=== PATIENT | female | born 1980 | race Caucasian/White ===

== ENCOUNTER 2016-05-02 09:30 | Emergency (ER) | payer BC ==
[2016-05-02 10:25] VITALS: BP 105/54
[2016-05-02] MEDS ORDERED: NS 0.9% 1000 ML* 1,000 ML IV ONE (11:14)
[2016-05-02] MEDS ORDERED: Famotidine IV * 20 MG in NS 0.9% 100 ML* 100 ML IVPB ONE (11:15)
[2016-05-02] MEDS ORDERED: Famotidine IV* 10 MG/ML 2 ML (20 mg) ONE (11:31)
--- NOTE | 2016-05-03 18:35 | UC ---
lisa Vaz Timothy, scribed for Susie Miller MD on 05/02/16 at 1104 . Abdominal Pain Female HPI - HPI Summary HPI Summary: Jim Purcell is a 35 yo female presenting to [facility] with vomiting x10-12 since 1900 yesterday. She also c/o 7/10 diffuse upper abdominal ache and discomfort since her Sx began, and has been unable to sleep comfortably. She is unable to keep fluids or food down. her last BM was today at 0600, and was diarrhea. Pt states her son had a stomach bug this past weekend. She denies any change in diet or use of ABx. Pt is currently breast feeding. her MHx includes fibromyalgia. - History of Current Complaint Chief Complaint: UCGI Stated Complaint: VOMITING Time Seen by Provider: 05/02/16 11:09 Hx Obtained From: Patient Hx Last Menstrual Period: IUD Onset/Duration: Sudden Onset, Lasting Hours, Still Present Timing: Constant Severity Initially: Moderate Severity Currently: Moderate Pain Intensity: 7 Pain Scale Used: 0-10 Numeric Location: Diffuse Radiates: No Character: Aching, Cramping Aggravating Factor(s): Food Alleviating Factor(s): Nothing Associated Signs and Symptoms: Positive: Nausea, Vomiting, Diarrhea - Risk Factors Ectopic Risk Factor: Maternal Age ^ 30 Ovarian Torsion Risk Factor: Reproductive Age Allergies/Adverse Reactions: Allergies Allergy/AdvReac Type Severity Reaction Status Date / Time Clarithromycin [From Biaxin] Allergy Severe Vomiting Verified 05/02/16 10:17 Amoxicillin Allergy Intermediate Rash Verified 05/02/16 10:17 Dairy Allergy Mild GI Upset Uncoded 05/02/16 10:17 eggs Allergy Mild GI Upset Uncoded 05/02/16 10:17 Gluten Allergy Mild GI Upset Uncoded 05/02/16 10:17 PMH/Surg Hx/FS Hx/Imm Hx Previously Healthy: No - fibromyalgia Psychological History Of: Reports: Anxiety - Surgical History Surgical History: None - Family History Known Family History: Positive: Diabetes, Other - fibromyalgia - Social History Lives: With Family Alcohol Use: Rare Substance Use Type: None Smoking Status (MU): Never Smoked Tobacco Have You Smoked in the Last Year: No - Immunization History Most Recent Influenza Vaccination: Fall 2015 Most Recent Tetanus Shot: 2014 Most Recent Pneumonia Vaccination: none Review of Systems Constitutional: Negative Skin: Negative Eyes: Negative ENT: Negative Respiratory: Negative Cardiovascular: Negative Gastrointestinal: Abdominal Pain, Vomiting, Diarrhea Genitourinary: Negative Motor: Negative Neurovascular: Negative Musculoskeletal: Negative Neurological: Negative Psychological: Negative All Other Systems Reviewed And Are Negative: Yes Physical Exam Triage Information Reviewed: Yes Appearance: No Pain Distress, Well-Nourished, Ill-Appearing Vital Signs: Initial Vital Signs Temp 98 F 05/02/16 10:19 Pulse 104 05/02/16 10:19 Resp 18 05/02/16 10:19 BP 105/54 05/02/16 10:19 Pulse Ox 99 05/02/16 10:19 Vital Signs Reviewed: Yes Eyes: Positive: Conjunctiva Clear ENT: Positive: Hearing grossly normal. Negative: Muffled/hoarse voice Neck: Positive: Supple, Nontender Respiratory: Positive: Chest non-tender, Lungs clear, Normal breath sounds, No respiratory distress Cardiovascular: Positive: RRR, No Murmur, Pulses Normal, Brisk Capillary Refill Abdomen Description: Positive: No Organomegaly, Soft. Negative: Nontender - mild diffuse tenderness, CVA Tenderness (R), CVA Tenderness (L), Distended, Guarding, McBurney's Point Tenderness, Peritoneal Signs Bowel Sounds: Positive: Present Musculoskeletal: Positive: Strength Intact, ROM Intact Neurological: Positive: Alert, Muscle Tone Normal Psychological Exam: Normal Skin Exam: Normal Re-Evaluation - Re-Evaluation First Eval Re-Evaluation Time: 12:09 Change: Improved Comment: Pt is willing to attempt to try ice chips and saltines. She has not vomited or had diarrhea. Second Eval Re-Evaluation Time: 13:07 Change: Improved Comment: Pt has had 600 cc's of fluid, and is retentive of ice chips and crackers. She still has some pain, but is refusing pain medication. Abd Pain Female Course/Dx - Course Course Of Treatment: Jim Purcell is a 35 yo female presenting to [facility] with N /V/D since last night. After clinical examination and IV hydration and receiving pepcid which is compatible with , review of her UA results, she will be discharged home with abdominal pain and gastroenteritis as well as appropriate instructions. UA results: Color: dark tressa. character: clear, cloudy. odor: strong. Bilirubin: negative. Urobilinogen: normal. Ketones: 300 mg/dL. ascorbic acid: negative. glucose: negative. Protein: 30mg/dL. blood: negative. pH: 6. Nitrite: negative. Leukpocytes: normal. Specific gravity: 1.035 - Differential Dx/Diagnosis Differential Diagnosis: Appendicitis, Bowel Obstruction, Urinary Tract Infection , Other - gastroenteritis Provider Diagnoses: abdominal pain and gastroenteritis Discharge - Discharge Plan Condition: Stable Disposition: HOME Patient Education Materials: Acute Abdominal Pain (ED), Gastroenteritis (ED) Referrals: Jenny Drummond MD [Primary Care Provider] - 2 Days Additional Instructions: Please follow up with your primary care physician regarding your visit to urgent care today. Return to urgent care or the emergency department with any new or recurring symptoms. You were given Pepcid 20mg IV and 600cc's of IV normal saline to hydrate you today and settle your stomach. You may continue the pepcid to a maximum of 40mg per day as needed. The documentation as recorded by the lisa barajas Timothy accurately reflects the service I personally performed and the decisions made by , Susie Miller MD.
== END 2016-05-02 13:48 | disposition home or self-care (01) ==
LOC: UCEAST 09:30
DX: K52.9 Noninfective gastroenteritis and colitis, unspecified (principal); R10.10 Upper abdominal pain, unspecified; Z88.1 Allergy status to other antibiotic agents; Z32.02 Encounter for pregnancy test, result negative
CPT/HCPCS: 81002; 81025; 96360; 96361; 96365; 99211; G0463

== ENCOUNTER 2016-09-06 10:05 | Emergency (ER) | payer BC ==
[2016-09-06 11:02] VITALS: BP 101/48
--- NOTE | 2016-09-06 11:17 | UC ---
Throat Pain/Nasal Toño HPI - HPI Summary HPI Summary: Sore throat for 10 days, seen pcp and step (-) last week SX continue, pain is actually down the sides of her throat coming down from her ears - History of Current Complaint Hx Obtained From: Patient Hx Last Menstrual Period: 08/26/16 ?: No Onset/Duration: Gradual Onset, Lasting Weeks - 2, Still Present Severity: Moderate Pain Intensity: 6 Pain Scale Used: 0-10 Numeric Cough: None <Mindy Steward - Last Filed: 09/06/16 18:20> <Sakina Long - Last Filed: 09/07/16 06:58> - History of Current Complaint Chief Complaint: UCRespiratory Stated Complaint: SORE THROAT Time Seen by Provider: 09/06/16 11:15 - Allergies/Home Medications Allergies/Adverse Reactions: Allergies Allergy/AdvReac Type Severity Reaction Status Date / Time Clarithromycin [From Biaxin] Allergy Severe Vomiting Verified 05/02/16 10:17 Amoxicillin Allergy Intermediate Rash Verified 05/02/16 10:17 Dairy Allergy Mild GI Upset Uncoded 05/02/16 10:17 eggs Allergy Mild GI Upset Uncoded 05/02/16 10:17 Gluten Allergy Mild GI Upset Uncoded 05/02/16 10:17 PMH/Surg Hx/FS Hx/Imm Hx Previously Healthy: Yes - Is currently - Surgical History Surgical History: None - Family History Known Family History: Positive: None, Diabetes, Other - fibromyalgia - Social History Occupation: Employed Full-time Lives: With Family Alcohol Use: Rare Substance Use Type: None Smoking Status (MU): Never Smoked Tobacco Have You Smoked in the Last Year: No - Immunization History Most Recent Influenza Vaccination: Fall 2015 Most Recent Tetanus Shot: 2014 Most Recent Pneumonia Vaccination: none <Mindy Steward - Last Filed: 09/06/16 18:20> Review of Systems Constitutional: Negative Skin: Negative Eyes: Negative ENT: Sore Throat, Ear Ache, Nasal Discharge, Sinus Congestion Respiratory: Negative Cardiovascular: Negative Gastrointestinal: Negative Genitourinary: Negative Motor: Negative Neurovascular: Negative Musculoskeletal: Negative Neurological: Negative Psychological: Negative All Other Systems Reviewed And Are Negative: Yes <Mindy Steward - Last Filed: 09/06/16 18:20> Physical Exam Triage Information Reviewed: Yes Appearance: Well-Appearing, No Pain Distress, Well-Nourished Vital Signs: Initial Vital Signs Temp 98.7 F 09/06/16 10:56 Pulse 61 09/06/16 10:56 Resp 16 09/06/16 10:56 BP 101/48 09/06/16 10:56 Pulse Ox 99 09/06/16 10:56 Vital Signs Reviewed: Yes Eye Exam: Normal Eyes: Positive: Conjunctiva Clear ENT Exam: Normal ENT: Positive: Normal ENT inspection, Hearing grossly normal, Pharynx normal, Nasal congestion, TMs normal. Negative: Nasal drainage, Tonsillar swelling, Tonsillar exudate, Trismus, Muffled/hoarse voice Dental Exam: Normal Neck exam: Normal Neck: Positive: Supple, Nontender, No Lymphadenopathy Respiratory Exam: Normal Respiratory: Positive: Chest non-tender, Lungs clear, Normal breath sounds, No respiratory distress, No accessory muscle use Cardiovascular Exam: Normal Cardiovascular: Positive: RRR, No Murmur, Pulses Normal, Brisk Capillary Refill Musculoskeletal Exam: Normal Musculoskeletal: Positive: Strength Intact, ROM Intact, No Edema Neurological Exam: Normal Neurological: Positive: Alert, Muscle Tone Normal Psychological Exam: Normal Skin Exam: Normal <Mindy Steward - Last Filed: 09/06/16 18:20> Vital Signs: Initial Vital Signs Temp 98.7 F 09/06/16 10:56 Pulse 61 09/06/16 10:56 Resp 16 09/06/16 10:56 BP 101/48 09/06/16 10:56 Pulse Ox 99 09/06/16 10:56 <Sakina Long - Last Filed: 09/07/16 06:58> Throat Pain/Nasal Course/Dx - Course Assessment/Plan: flonase increase fluids, follow with pcp - Differential Dx/Diagnosis Differential Diagnosis/HQI/PQRI: Otitis Media, Pharyngitis, Sinusitis, URI, Other - allergic Rhinitis Provider Diagnoses: Allergic Rhinitis <Mindy Steward - Last Filed: 09/06/16 18:20> Discharge <Mindy Steward - Last Filed: 09/06/16 18:20> <Sakina Long - Last Filed: 09/07/16 06:58> - Discharge Plan Condition: Stable Disposition: HOME Prescriptions: Fluticasone NASAL SPRAY 50MCG* [Flonase NASAL SPRAY 50MCG*] 2 spray BOTH NARES DAILY #1 btl Patient Education Materials: Fluticasone (Into the nose), Allergic Rhinitis (ED ), How to Use Nasal Sharples (ED) Referrals: Jenny Drummond MD [Primary Care Provider] - 5 Days Attestation Statement User Type: Provider - I was available for consult. This patient was seen by the BELÉN. The patient was not presented to, seen by, or examined by me. -Paige <Sakina Long - Last Filed: 09/07/16 06:58>
== END 2016-09-06 11:34 | disposition home or self-care (01) ==
LOC: UCEAST 10:05
DX: J30.9 Allergic rhinitis, unspecified (principal)
CPT/HCPCS: 87070; 87651; 99212; G0463

== ENCOUNTER 2017-10-15 11:30 | Emergency (ER) | payer BC ==
[2017-10-15 12:14] VITALS: BP 95/58
--- NOTE | 2017-10-15 12:42 | UC ---
UC General HPI - HPI Summary HPI Summary: patient is , both nipples are red, stingin and sharp spuratic pain. daughter has white spots in her mouth - History of Current Complaint Chief Complaint: UCGeneralIllness Stated Complaint: THRUSH ON BREAST Time Seen by Provider: 10/15/17 12:07 Hx Obtained From: Patient Hx Last Menstrual Period: 09/30/17 Onset/Duration: Sudden Onset, Lasting Days Timing: Constant Onset Severity: Moderate Current Severity: Moderate Pain Intensity: 6 - Allergy/Home Medications Allergies/Adverse Reactions: Allergies Allergy/AdvReac Type Severity Reaction Status Date / Time clarithromycin [From Biaxin] Allergy Severe Vomiting Verified 10/15/17 12:07 amoxicillin Allergy Rash Verified 10/15/17 12:07 Dairy Allergy Mild GI Upset Uncoded 05/02/16 10:17 eggs Allergy Mild GI Upset Uncoded 05/02/16 10:17 Gluten Allergy Mild GI Upset Uncoded 05/02/16 10:17 PMH/Surg Hx/FS Hx/Imm Hx Previously Healthy: Yes - Surgical History Surgical History: None - Family History Known Family History: Positive: None, Diabetes, Other - fibromyalgia - Social History Alcohol Use: None Substance Use Type: None Smoking Status (MU): Never Smoked Tobacco Have You Smoked in the Last Year: No - Immunization History Most Recent Influenza Vaccination: Fall 2015 Most Recent Tetanus Shot: 2014 Most Recent Pneumonia Vaccination: none Review of Systems Constitutional: Negative Skin: Other - redness and flaking of the nipples Eyes: Negative ENT: Negative Respiratory: Negative Cardiovascular: Negative Gastrointestinal: Negative Genitourinary: Negative Motor: Negative Neurovascular: Negative Musculoskeletal: Negative Neurological: Negative Psychological: Negative Is Patient Immunocompromised?: No All Other Systems Reviewed And Are Negative: Yes Physical Exam Triage Information Reviewed: Yes Appearance: Well-Appearing, Well-Nourished, Pain Distress Vital Signs: Initial Vital Signs Temp 99.2 F 10/15/17 12:09 Pulse 74 10/15/17 12:09 Resp 18 10/15/17 12:09 BP 95/58 10/15/17 12:09 Pulse Ox 97 10/15/17 12:09 Eye Exam: Normal ENT Exam: Normal Dental Exam: Normal Neck exam: Normal Neck: Positive: Supple, Nontender, No Lymphadenopathy Respiratory Exam: Normal Respiratory: Positive: Chest non-tender, Lungs clear, Normal breath sounds Cardiovascular Exam: Normal Cardiovascular: Positive: RRR, No Murmur, Pulses Normal Abdominal Exam: Normal Abdomen Description: Positive: Nontender, No Organomegaly, Soft Bowel Sounds: Positive: Present Musculoskeletal Exam: Normal Neurological Exam: Normal Psychological Exam: Normal Skin: Positive: Other - redness and flaking of both nipples, no swelling or erythema of the breasts. 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 I recommend that you use coconut oil multiple times a day for the next few days. 2. I did send in the nystatin prescription in case you need. it. keep nipples clean and dry and to air as much as possible. - Billing Disposition and Condition Condition: STABLE Disposition: Home
== END 2017-10-15 12:40 | disposition home or self-care (01) ==
LOC: UCEAST 11:30
DX: B37.89 Other sites of candidiasis (principal); Z88.0 Allergy status to penicillin; Z88.1 Allergy status to other antibiotic agents; Z91.012 Allergy to eggs; Z91.011 Allergy to milk products
CPT/HCPCS: 99212; G0463

== ENCOUNTER 2017-11-05 09:42 | Emergency (ER) | payer BC ==
--- OUTSIDE RECORDS SUMMARY | 2017-11-05 09:52 | XMS REPORT ---
:1980 External Reference #:[id number] Author Organization [facility] Address [address] [place] [address] Phone [phone] Care Team Providers Name Role Phone Bhanu Jenny Primary Care Physician Unavailable Payers Type Date Identification Numbers Payment Provider Subscriber Commercial Effective: Policy Number: [employer] BC/BS Jim Muller 2013 [id number] [facility] PayID: [id number] [address] [address] [place] [address] Problems Date Description Provider Status Onset: 03/09/2015 Multigravida Milli Chadwick NP Resolved Resolved: 10/16/2015 Family History Date Family Member(s) Problem(s) Comments Father Diabetes Father Alcoholism Father Heart Disease Father Hypertension Mother Fibromyalgia Mother Cancer, Bone Children 2 First Son A&W First Daughter A&W Siblings 2 First Sister A&W Second Sister Fibromyalgia Second Sister Drug Addiction prior hx Paternal Grandfather due to Leukemia () Paternal Grandmother due to Stomach Cancer () Maternal Grandfather due to Unknown Causes () Maternal Grandmother due to Cervical Cancer () Social History Type Date Description Comments Education Highest Level Completed, Master's Degree Marital Status Lives With Spouse Lives With Son Lives With Daughter Pets 1 dog 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 Cigarette Use Never Smoked Cigarettes ETOH Use Rarely consumes alcohol Smoking Patient has never smoked Recreational Drug Use Denies Drug Use Daily Caffeine Consumes on average 1 cup of coffee per day Daily Caffeine Consumes on average 1 cup of tea per day Exercise Type/Frequency Exercises regularly Seat Belt/Car Seat Always uses seat belt Currently Active Patient is currently sexually active Contraceptive Methods Current methods include condoms STD's No STD History Allergies, Adverse Reactions, Alerts Date Description Reaction Status Severity Comments 05/03/2011 Amoxicillin active Medications Medication Date Status Form Strength Qnty SIG Indications Ordering Provider Plus Active Tablets 1 by mouth Unknown Dha 000 every day please use any generic vitamin covered by ins. with dha 100-300 mg. thanks Diflucan Hx Tablets 100mg 15tabs take 2 tabs Mahrie 018 - today. one KEVIN Grey tab daily x 018 2 weeks. 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 No Active Hx Unknown Medications 015 - 015 Tri-Sprintec Hx Tablets 0.18/0.215 84tabs 1 by mouth Phaelon 015 - /0.25 every day MD Sunni mg-35 mcg 015 Hx Tablets 90tabs 1 po qd David Gan Vitamins 013 - Gelber, M.DVerenice 015 Lo Loestrin Fe Hx Tablets 1mg-10 mcg 3mo 1 po qd 626.8 Jen 012 - / 10 mcg , ANP-C 013 Beyaz Hx Tablets 0.5/1/0.5- 1po qd 3 626.8 Jen 012 - 35 mg-mcg monhs Opal, sample ANP-C 012 Daily Vitamins /0 Hx Unknown 000 - 011 Aleve Hx Unknown 000 - 013 Ryan-E Hx Unknown 000 - 011 Fish Oil 0 Hx Unknown 000 - 013 Vitamin D Hx Unknown 000 - 013 Clindamycin 00/00/0 Hx Unknown HCL 000 - 015 Dha /0 Hx Unknown 000 - 017 Medications Administered in Office Medication Date Status Form Strength Qnty SIG Indications Ordering Provider PT SCRN Tbco Administered Injection Phaelon Id as Non User 018 MD Sunni Immunizations CPT Code Status Date Vaccine Lot # [id number] Given 07/07/2015 Tetnus, Diptheria Toxoids And Acellular Pertussis, [id number] PT > 7Yrs Old Vital Signs Date Vital Result Comment 10/26/2017 BP Systolic 96 mmHg BP Diastolic 66 mmHg Height 60.5 inches 5'0.50" Weight 133.00 lb BMI (Body Mass Index) 25.5 kg/m2 Last Menstrual Period [id number] 3 Parity 2 02/21/2017 BP Systolic 106 mmHg BP Diastolic 68 mmHg Height 60.5 inches 5'0.50" Weight 134.00 lb BMI (Body Mass Index) 25.7 kg/m2 Last Menstrual Period 3040771 3 Parity 2 02/07/2017 BP Systolic 102 mmHg BP Diastolic 64 mmHg Height 60.5 inches 5'0.50" Weight 134.00 lb BMI (Body Mass Index) 25.7 kg/m2 Last Menstrual Period 1086834 3 Parity 2 08/03/2016 BP Systolic 112 mmHg BP Diastolic 76 mmHg Height 60.5 inches 5'0.50" Weight 136.00 lb BMI (Body Mass Index) 26.1 kg/m2 3 Parity 2 01/07/2016 BP Systolic 100 mmHg BP Diastolic 66 mmHg Height 61.25 inches 5'1.25" Weight 142.00 lb BMI (Body Mass Index) 26.6 kg/m2 Last Menstrual Period 5405231 3 Parity 2 12/07/2015 BP Systolic 110 mmHg BP Diastolic 60 mmHg Height 61.25 inches 5'1.25" Weight 139.00 lb BMI (Body Mass Index) 26.0 kg/m2 3 Parity 2 11/19/2015 BP Systolic 108 mmHg BP Diastolic 64 mmHg Height 61.25 inches 5'1.25" Weight 142.00 lb BMI (Body Mass Index) 26.6 kg/m2 Last Menstrual Period 0782438 3 Parity 2 10/16/2015 BP Systolic 112 mmHg BP Diastolic 66 mmHg Height 61.25 inches 5'1.25" Weight 146.00 lb BMI (Body Mass Index) 27.4 kg/m2 Last Menstrual Period 1240958 3 Parity 2 03/09/2015 BP Systolic 104 mmHg BP Diastolic 62 mmHg Height 61.25 inches 5'1.25" Weight 132.00 lb BMI (Body Mass Index) 24.7 kg/m2 Last Menstrual Period 1290200 3 Parity 1 12/04/2014 BP Systolic 106 mmHg BP Diastolic 58 mmHg Height 61.25 inches 5'1.25" Weight 136.00 lb BMI (Body Mass Index) 25.5 kg/m2 Last Menstrual Period 3117024 2 Parity 1 11/06/2014 BP Systolic 108 mmHg BP Diastolic 60 mmHg Height 61.25 inches 5'1.25" Weight 135.00 lb BMI (Body Mass Index) 25.3 kg/m2 Last Menstrual Period 9196562 2 Parity 1 08/06/2014 BP Systolic 104 mmHg BP Diastolic 66 mmHg Height 61.25 inches 5'1.25" Weight 139.00 lb BMI (Body Mass Index) 26.0 kg/m2 Last Menstrual Period 8084208 2 Parity 1 05/05/2014 BP Systolic 112 mmHg BP Diastolic 78 mmHg Height 61.25 inches 5'1.25" Weight 142.00 lb BMI (Body Mass Index) 26.6 kg/m2 Last Menstrual Period 9486828 2 Parity 1 10/15/2013 BP Systolic 104 mmHg BP Diastolic 56 mmHg Height 60 inches 5'0" Weight 134.00 lb BMI (Body Mass Index) 26.2 kg/m2 Last Menstrual Period 9566378 2 Parity 1 01/03/2013 BP Systolic 100 mmHg BP Diastolic 64 mmHg Height 60 inches 5'0" Weight 129.00 lb BMI (Body Mass Index) 25.2 kg/m2 Last Menstrual Period 0587672 del 11/25/12 2 Parity 1 04/12/2012 BP Systolic 102 mmHg BP Diastolic 54 mmHg Height 60 inches 5'0" Weight 121.00 lb BMI (Body Mass Index) 23.6 kg/m2 Last Menstrual Period 6296971 2 Parity 0 08/29/2011 BP Systolic 110 mmHg BP Diastolic 62 mmHg Height 60.50 inches 5'0.50" Weight 131.00 lb BMI (Body Mass Index) 25.2 kg/m2 Last Menstrual Period 3973138 1 Parity 0 08/15/2011 BP Systolic 106 mmHg BP Diastolic 60 mmHg Height 60.50 inches 5'0.50" Weight 128.00 lb BMI (Body Mass Index) 24.6 kg/m2 Last Menstrual Period 9755681 1 Parity 0 05/03/2011 BP Systolic 104 mmHg BP Diastolic 66 mmHg Height 60.50 inches 5'0.50" Weight 129.00 lb BMI (Body Mass Index) 24.8 kg/m2 Last Menstrual Period 2563920 1 Parity 0 Results Test Date Test Result H/L Range Note Laboratory test 09/04/2015 Genital For GRP B SEE RESULT BELOW 1 finding Strep Only Laboratory test 07/20/2015 Rubella Screen Equivocal IU/mL Immune 2 finding Laboratory test 07/07/2015 Glucose 1 HR Post 110 mg/dL 70-160 3 finding Prandial CBC With No Diff 07/07/2015 White Blood Count 7.6 10^3/uL 3.5-10.8 Red Blood Count 3.38 10^6/uL Low 4.0-5.4 Hemoglobin 10.6 g/dL Low 12.0-16.0 Hematocrit 32 % Low 35-47 Mean Corpuscular Volume 94 fL 80-97 Mean Corpuscular Hemoglobin 31 pg 27-31 Mean Corpuscular HGB Conc 33 g/dL 31-36 Red Cell Distribution Width 13 % 10.5-15 Platelet Count 187 10^3/uL 150-450 Mean Platelet Volume 10 um3 7.4-10.4 GC/Chlamydia Dna Probe 04/09/2015 Chlamydia trachomatis Rna Negative Negative Neisseria gonorrhoeae (GC) Rna Negative Negative Laboratory test finding 04/09/2015 TSH 2.91 ?IU/mL 0.34-5.60 PNL No Urine 03/09/2015 Rubella Screen Equivocal IU/mL Immune Hemoglobin A1c 5.1 % Less than 6.0 4 Hepatitis B Surface Ag Nonreactive Nonreactive 5 RPR 03/09/2015 Pediatric/Maternal YES Syphilis IgG TNP Nonreactive RPR Nonreactive Nonreactive RPR Titer TNP CBC With No Diff 03/09/2015 White Blood Count 6.2 10^3/uL 3.5-10.8 Red Blood Count 4.02 10^6/uL 4.0-5.4 Hemoglobin 12.4 g/dL 12.0-16.0 Hematocrit 38 % 35-47 Mean Corpuscular Volume 94 fL 80-97 Mean Corpuscular Hemoglobin 31 pg 27-31 Mean Corpuscular HGB Conc 33 g/dL 31-36 Red Cell Distribution Width 12 % 10.5-15 Platelet Count 226 10^3/uL 150-450 Mean Platelet Volume 10 um3 7.4-10.4 Type And Screen 03/09/2015 Antibody Screen NEGATIVE Patient Blood Type A Positive HIV 1/2 AB Evaluation 03/09/2015 HIV 1 2 Antibody Nonreactive Nonreactive 6 Lead 03/09/2015 Lead <1.0 g/dL 0.0-9.9 Urine Culture And 03/09/2015 Urine Culture SEE RESULT BELOW 7 Sensitivities Laboratory test finding 12/04/2014 Gardnerella/Yeast SEE RESULT BELOW 8 : Vaginal Dna Laboratory test finding 11/06/2014 Cytology SEE RESULT BELOW 9 Human Papilloma Virus Rna Negative Negative 10 Laboratory test finding 10/25/2012 Group B Strep Culture (SEE NOTE) 11 Screen Glucose Tolerance 2HR 08/20/2012 GTT 2HR Gestational (SEE NOTE) 12 Gestational CBC With No Diff 08/20/2012 White Blood Count 7.2 10^3/uL 4.8-10.8 Red Blood Count 3.28 10^6/uL Low 4.0-5.4 Hemoglobin 10.8 g/dL Low 12.0-16.0 Hematocrit 31 % Low 35-47 Mean Corpuscular Volume 94 fL 80-97 Mean Corpuscular Hemoglobin 33 pg High 27-31 Mean Corpuscular HGB Conc 35 g/dL 31-36 Red Cell Distribution Width 12 % 10.5-15 Platelet Count 190 10^3/uL 150-450 Mean Platelet Volume 10 um3 7.4-10.4 Laboratory test 08/20/2012 Rubella Screen Nonimmune Immune 13 finding Urine Culture And 04/12/2012 Urine Culture (SEE NOTE) 14 Sensitivities GC/Chlamydia Dna Probe 04/12/2012 GC/Chlamydia Rna (SEE NOTE) 15 Laboratory test 04/12/2012 Cytology RUN DATE: finding <SEE NOTE> Human Papilloma Virus 04/12/2012 Human Papillomavirus CERV Source Human Papillomavirus High Risk Negative Negative 17 Laboratory test 04/12/2012 Cytology RUN DATE: finding <SEE NOTE> HIV 1/2 AB 04/12/2012 HIV 1 2 Antibody Nonreactive Nonreactive 19 Evaluation Type And Screen 04/12/2012 Patient Blood A Positive Type Antibody Screen NEGATIVE CBC With No Diff 04/12/2012 White Blood Count 7.8 10^3/uL 4.8-10.8 Red Blood Count 4.00 10^6/uL 4.0-5.4 Hemoglobin 12.9 g/dL 12.0-16.0 Hematocrit 38 % 35-47 Mean Corpuscular Volume 94 fL 80-97 Mean Corpuscular Hemoglobin 32 pg High 27-31 Mean Corpuscular HGB Conc 34 g/dL 31-36 Red Cell Distribution Width 13 % 10.5-15 Platelet Count 220 10^3/uL 150-450 Mean Platelet Volume 11 um3 High 7.4-10.4 RPR 04/12/2012 Syphilis IgG TNP Nonreactive RPR Nonreactive Nonreactive RPR Titer TNP Pediatric/Maternal YES PNL No Urine 04/12/2012 Rubella Screen Equivocal Immune Hemoglobin A1c 5.5 % Less than 6.0 20 Hepatitis B Surface Antigen Nonreactive Nonreactive 21 Thyroid Function [place] 08/15/2011 TSH,Sensitive 2.6 mIU/L 0.3-5.0 22 Laboratory test finding 08/15/2011 BHCG Quantitative < 2.1 MIU/ML 0-5 23 Laboratory test finding 05/03/2011 Cytology 24 <SEE NOTE> 1 SEE RESULT BELOW Name: JIM MULLER : [address]: Yessenia Avelar [facility] Acct: [id number] Unit: [id number] AGE: 35 Location: [facility] Re09/04/15 SEX: F Status: REG REF SPEC: [id number] CHATO: 09/04/151403 [facility] DR: Yessenia Avelar [facility] REQ: [id number] RECD: 09/04/15 STATUS: COMP _ SOURCE: CER/VAG/RE SPDESC: ORDERED: Grp Kelly Mckeon Scrn COMMENTS: [id number] QUERIES: Is Patient Penicillin Allergic? Y Is patient penicillin allergic and/or sensitivities needed? Y Provider Requisition # C77#[id number]_ Procedure Result Reported Site Group B Strep Culture Screen Final 09/06/15- 1018 ML Group B Strep Screen Negative * ML - MAIN LAB ([facility]) . END OF REPORT * ML=Testing performed at Main Lab DEPARTMENT OF PATHOLOGY, [address] [place] [address] Santi Mckenzie M.D. Director [facility] # [id number] 2 [id number] 3 [id number] Therapeutic target for the treatment of diabetes Mellitus patients is <7% HBA1C, and in selective patients <6.0%.Please refer to [place] [employer] Diabetic care guidelines for further information. 5 , Pediatric (<=12yrs) or Maternal?: YES 6 It is recognized that currently available assays for the detection of antibodies to HIV-1 and/or HIV-2 may not detect all infected individuals. HIV antibodies may be undetectable in some stages of the infection and in some clinical conditions. The performance of this assay has not been established for populations of infants or children. Assayed by Chemiluminescence Microparticle Immunoassay on the Siemens Advia Centaur CP. Values obtained with different methods or kits cannot be used interchangeably.The diagnostic specificity of the ADVIA Centaur 1/O/2 Enhanced assay in the low risk population was 99.90% (6052/6058) with a 95% confidence interval of 99.78 to 99.96%. 7 SEE RESULT BELOW Name: JIM MULLER : [address]: Milli Chadwick NP Acct: [id number] Unit: [id number] AGE: 34 Location: [facility] Re03/09/15 SEX: F Status: REG REF SPEC: [id number] CHATO: 03/09/[address]: Milli Chadwick NP REQ: [id number] RECD: 03/09/15 STATUS: COMP _ SOURCE: URINE [facility]: ORDERED: Urine Culture Procedure Result Reported Site Urine Culture Final 03/10/15- 1303 ML No Growth (<1,000 CFU/mL) * ML - MAIN LAB ([facility]) . END OF REPORT * ML=Testing performed at Main Lab DEPARTMENT OF PATHOLOGY, [address] [place] [address] Santi Mckenzie M.D. Director [place] # [id number] 8 SEE RESULT BELOW Name: JIM MULLER : [address]: Milli Chadwick NP Acct: [id number] Unit: [id number] AGE: 34 Location: [facility] Re12/04/14 SEX: F Status: REG REF SPEC: [id number] CHATO: 12/04/14-[address]: Milli Chadwick NP REQ: [id number] RECD: 12/04/14 STATUS: COMP _ SOURCE: VAGINAL SPDESC: ORDERED: Amber,Yeast DNA, Trich DNA Procedure Result Verified Site Gardnerella/Yeast: Vaginal DNA Final 12/05/14- 1102 ML Organism 1 Negative Gardnerella Organism 2 Negative Ramila The presence of G. vaginalis, although suggestive, is not diagnostic for bacterial vaginosis. Results should be interpreted in conjuction with other clinical and laboratory data available. Women with vaginal discharge should be evaluated for risk factors of cervicitis and pelvic inflammatory disease, toxic shock syndrome (S.aureus), and if present, evaluated for organisms not included in this assay such as N. gonorrhoeae, C. trachomatis, Mobiluncus, Mycoplasma and/or Prevotella. Mixed infections may occur. The performance of this test on patient specimens collected during or immediately after antimicrobial therapy is unknown. The presence or absence of Ramila species, or G. vaginalis cannot be used as a test for therapeutic success or failure. Trichomonas: Vaginal DNA Probe Final 12/05/141102 ML Organism 1 Negative Trichomonas CONTINUED ON NEXT PAGE * ML=Testing performed at Main Lab DEPARTMENT OF PATHOLOGY, [address] [place] [address] Santi Mckenzie M.D. Director [facility] # [id number] Patient: JIM MULLER [id number] (Continued) Specimen: [id number] Collected: 12/04/14 Received: 12/04/14 (Continued) Procedure Result Verified Site Trichomonas: Vaginal DNA Probe Final (continued) 12/05/14- 1103 The presence or absence of T. vaginalis cannot be used as a test for therapeutic success or failure. * ML - MAIN LAB ([facility]) . END OF REPORT * ML=Testing performed at Main Lab DEPARTMENT OF PATHOLOGY, [address] [place] [address] Santi Mckenzie M.D. Director [facility] # [id number] 9 SEE RESULT BELOW Name: JIM MULLER : [address]: Milli Chadwick NP Acct: [id number] Unit: [id number] AGE: 34 Location: [facility] Re11/06/14 SEX: F Status: REG REF SPEC: [id number] CHATO: 11/06/14-[address] [facility] [address]: Milli Chadwick NP REQ: [id number] RECD: 11/06/14 STATUS: SOUT _ ORDERED: IMAGE ANALYSIS, HPV/Thin Prep FINAL DIAGNOSIS Negative for Intraepithelial lesion or Malignancy A. Ectocervical/Endocervical Specimen Adequacy: Satisfactory of evaluation Transformation zone component identified Patient Information: HPV: High risk HPV RNA testing regardless of pap results. Actual Specimen Date: 11/06/14 Last Menstrual Date: 10/16/14 Date of Last Specimen: 04/12/12 ?: N Date Time Test Result Flag (u) Normal Range 11/06/14 0822 HPV RNA Negative Negative The high-risk HPV types detected by the assay include: 16, 18, 31, 33, 35, 39, 45, 51, 52, 56, 58, 59, 66, and 68. Signed (signature on file) Zackery Ramirez 11/07/14 1158 This Pap test was evaluated with the assistance of the ThinPrep Test Imaging System. Due to cytologic findings at the contact acid plant operator microscope, comprehensive manual rescreening by a Hvac Manager may be required. The Pap Smear is a screening test designed to aid in the detection of premalignant and malignant conditions of the uterine cervix. It is not a diagnostic procedure and should not be used as the sole means of detecting cervical cancer. Both false- positive and false- negative reports do occur. Depending on your risk status, a Pap smear should be obtained and evaluated every 1-3 years. END OF REPORT * ML=Testing performed at Main Lab DEPARTMENT OF PATHOLOGY, [facility] [employer] [place] [address] Santi Mckenzie M.D. Director [facility] # [id number] 10 The high-risk HPV types detected by the assay include: 16, 18, 31, 33, 35, 39, 45, 51, 52, 56, 58, 59, 66, and 68. 11 RUN DATE: 10/28/12 [facility] LAB LIVE PAGE 1 RUN TIME: 1016 [facility] [place] [address] Specimen Inquiry Name: JIM MULLER : [address]: Yessenia Avelar [facility] Acct: [id number] Unit: [id number] AGE: 32 Location: [facility] Re10/25/12 SEX: F Status: REG REF SPEC: [id number] CHATO: 10/25/12-[address] [facility] [address]: Yessenia Avelar [facility] REQ: [id number] RECD: 10/26/12 STATUS: COMP _ SOURCE: CER/VAG/RE SPDESC: ORDERED: Grp B Strp Scrn QUERIES: Is Patient Penicillin Allergic? Y Medent Number [id number] Procedure Result Verified Site Group B Strep Culture Screen Final 10/28/12- 1016 ML Group B Strep Screen Negative END OF REPORT * ML=Testing performed at Main Lab DEPARTMENT OF PATHOLOGY, [address] [place] [address] Santi Mckenzie M.D. Director [facility] Permit #[id number] GLU Fast 85 Col: 08/20/12 0844 GLU 1HR 120 Col: 08/20/12 0844 GLU 2HR 89 Col: 08/20/12 0844 GTT Interp Col: 08/20/12843 Gestational Diabetes Diagnostic: OGTT Glucose Load: samples drawn after 75-gram glucose drink Target Levels: Fasting <92 mg/dl 1hr <180 mg/dl 2hr <153 mg/dl If ONE or more values meet or exceed the target level, gestational diabetes is diagnosed. 13 FASTING 14 RUN DATE: 04/14/12 [facility] LAB LIVE PAGE 1 RUN TIME: [address] [place] [address] Specimen Inquiry Name: JIM MULLER : [address]: Milli Chadwick NP Acct: [id number] Unit: [id number] AGE: 31 Location: [facility] Re04/12/12 SEX: F Status: REG REF SPEC: [id number] CHATO: 04/12/12-[address]: Milli Chadwick NP REQ: [id number] RECD: 04/12/127933 STATUS: COMP _ SOURCE: URINE SPDESC: ORDERED: Urine Culture QUERIES: Medent Number [id number] Procedure Result Verified Site Urine Culture Final 04/14/12- 928 ML Organism 1 NORMAL FLORES [place] Count 25-50,000 (Moderate) CFU/ML END OF REPORT * ML=Testing performed at Main Lab DEPARTMENT OF PATHOLOGY, [facility] [employer] [place], [place] [address] Santi Mckenzie M.D. Director [facility] Permit #[id number] RUN DATE: 04/17/12 [facility] LAB LIVE PAGE 1 RUN TIME: [address] [place] [address] Specimen Inquiry Name: JIM MULLER : [address]: Milli Chadwick NP Acct: [id number] Unit: [id number] AGE: 31 Location: [facility] Re04/12/12 SEX: F Status: REG REF SPEC: [id number] CHATO: 04/12/12-[address]: Milli Chadwick NP REQ: [id number] RECD: 04/13/129 STATUS: COMP _ SOURCE: SHELLIE SPDESC: ORDERED: GC/Chlam RNA QUERIES: Medent Number [id number] Procedure Result Verified Site Chlamydia Trachomatis RNA Final 04/17/12- 1315 ML NEGATIVE for Chlamydia trachomatis rRNA GC (N. gonorrhoeae) RNA Final 04/17/12- 1315 ML NEGATIVE for Neisseria gonorrhoeae rRNA A negative result does not preclude the presence of a C. trachomatis or N. gonorrhoeae infection because results are dependent on adequate specimen collection, absence of inhibitors, and sufficient rRNA to be detected. Test results may be affected by improper specimen collection, improper storage, technical error, or specimen mixup. Limitations of the Procedure: The Aptima Combo 2 Assay is not intended for the evaluation of suspected sexual abuse or for other medico-legal indications. For those patients for whom a false positive result may have adverse psychosocial impact, the [facility] recommends retesting by a method using an alternate technology. Therapeutic failure or success cannot be determined with the Aptima Combo 2 Assay since nucleic acid may persist following appropriate antimicrobial therapy. Results from the Aptima Combo 2 Assay should be interpreted in conjunction with other laboratory and clinical data available to the clinican. CONTINUED ON NEXT PAGE * ML=Testing performed at Main Lab DEPARTMENT OF PATHOLOGY, [facility] [employer] [place], [place] [address] Santi Mckenzie M.D. Director [facility] Permit #[id number] RUN DATE: 04/17/12 [facility] LAB LIVE PAGE 2 RUN TIME: 1315 [facility] [place], [place] [address] Specimen Inquiry Patient: JIM MULLER [id number] (Continued) Specimen: [id number] Collected: 04/12/12-1454 Received: 04/13/12-102 (Continued) Procedure Result Verified Site GC (N. gonorrhoeae) RNA Final (continued) 04/17/12- 1315 Performance characteristics for detecting C. trachomatis and N. gonorrhoeae are derived from high prevalence populations. Positive results in low prevalence populations should be interpreted carefully with the understanding that the likelihood of a false positive may be higher than a true positive. END OF REPORT * ML=Testing performed at Main Lab DEPARTMENT OF PATHOLOGY, [facility] [employer] [place], [place] [address] Santi Mckenzie M.D. Director [facility] Permit #[id number] RUN DATE: 04/17/12 [facility] LAB LIVE PAGE 1 RUN TIME: 8038 [facility] [place], [place] [address] Specimen Inquiry Name: JIM MULLER : [address]: Milli Chadwick NP Acct: [id number] Unit: [id number] AGE: 31 Location: [facility] Re04/12/12 SEX: F Status: REG REF SPEC: [id number] CHATO: 04/12/12-[address] [facility] [address]: Milli Chadwick NP REQ: [id number] RECD: 04/13/121233 STATUS: SOUT _ ORDERED: IMAGE ANALYSIS, HPV / Thin Prep HiRisk Human Papilloma Virus test results received with preparation and diagnosis completed by [facility], [place], [place]. Results: NEGATIVE High Risk (for types 16, 18, 31, 33, 35, 39, 45, 51, 52, 56, 58, 59, 68) [facility] Hybrid Capture Specimen Transport Media or [employer] ThinPrep PapTest PreservCyt Solution are the collection systems approved for use with this method by the U.S. Food and Drug Administration. Performance characteristics for [employer] (SurPath) collection device have been determined by Laboratory Medicine and Pathology , [facility], [place], [place]. It has not been cleared or approved by the U.S. Food and Drug Administration. Test Performed by: [facility] Dpt of lab Med and Pathology [address] [facility] [address] Manager Online: Igor Salazar III, M.D. Original hard copy report from [facility] is available upon request by calling Pathology at [phone]. Addendum Signed (signature on file) Jacqui VIKTORIA Jay (ASCP) 04/17/12 0843 FINAL DIAGNOSIS Negative for Intraepithelial lesion or Malignancy COMMENTS: Specimen sent to [facility] in [place], [place] on 04/13/12. Results will be reported separately in an Addendum. A. Ectocervical/Endocervical Specimen Adequacy: CONTINUED ON NEXT PAGE * ML=Testing performed at Main Lab DEPARTMENT OF PATHOLOGY, [facility] [employer] [place] [address] Santi Mckenzie M.D. Director [facility] Permit #[id number] RUN DATE: 04/17/12 [facility] LAB LIVE PAGE 2 RUN TIME: [address] [place] [id number] Specimen Inquiry Patient: JIM MULLER [id number] (Continued) CYTOLOGY ADEQ (Continued) Satisfactory of evaluation Transformation zone component identified Patient Information: HPV: High risk HPV DNA testing regardless of pap results. Actual Specimen Date: 04/12/12 Last Menstrual Date: 02/15/12 Date of Last Specimen: 05/03/11 ?: Y Signed (signature on file) Esau VIKTORIA Ruiz (ASCP) 04/13 1505 This Pap test was evaluated with the assistance of the c8appsPrep Test Imaging System. Due to cytologic findings at the contact acid plant operator microscope, comprehensive manual rescreening by a Hvac Manager may be required. The Pap Smear is a screening test designed to aid in the detection of premalignant and malignant conditions of the uterine cervix. It is not a diagnostic procedure and should not be used as the sole means of detecting cervical cancer. Both false- positive and false- negative reports do occur. Depending on your risk status, a Pap smear shoudl be obtained and evaluated every 1-3 years. END OF REPORT * ML=Testing performed at Main Lab DEPARTMENT OF PATHOLOGY, [facility] [employer] [place], [place] [address] Santi Mckenzie M.D. Director [facility] Permit #[id number] For types 16, 18, 31, 33, 35, 39, 45, 51, 52, 56, 58, 59 and 68. Test Performed by: [address] [address] Manager Online: Igor Salazar III, M.D. 18 RUN DATE: 04/13/12 [facility] LAB LIVE PAGE 1 RUN TIME: [address] [place] [address] Specimen Inquiry Name: JIM MULLER : [address]: Milli Chadwick NP Acct: [id number] Unit: [id number] AGE: 31 Location: [facility] Re04/12/12 SEX: F Status: REG REF SPEC: [id number] CHATO: 04/12/12-1455 [facility] [address]: Milli Chadwick NP REQ: [id number] RECD: 04/13/12-123 STATUS: SOUT _ ORDERED: IMAGE ANALYSIS, HPV / Thin Prep FINAL DIAGNOSIS Negative for Intraepithelial lesion or Malignancy COMMENTS: Specimen sent to [facility] in [place], [place] on 04/13/12. Results will be reported separately in an Addendum. A. Ectocervical/Endocervical Specimen Adequacy: Satisfactory of evaluation Transformation zone component identified Patient Information: HPV: High risk HPV DNA testing regardless of pap results. Actual Specimen Date: 04/12/12 Last Menstrual Date: 02/15/12 Date of Last Specimen: 05/03/11 ?: Y Signed (signature on file) VIKTORIA Curtis (ASCP) 04/13 1508 This Pap test was evaluated with the assistance of the ThinPrep Test Imaging System. Due to cytologic findings at the contact acid plant operator microscope, comprehensive manual rescreening by a Hvac Manager may be required. The Pap Smear is a screening test designed to aid in the detection of premalignant and malignant conditions of the uterine cervix. It is not a diagnostic procedure and should not be used as the sole means of detecting cervical cancer. Both false- positive and false- negative reports do occur. Depending on your risk status, a Pap smear shoudl be obtained and evaluated every 1-3 years. END OF REPORT * ML=Testing performed at Main Lab DEPARTMENT OF PATHOLOGY, [address] [place] [address] Santi Mckenzie M.D. Director [facility] Permit #[id number] 19 It is recognized that currently available assays for the detection of antibodies to HIV-1 and/or HIV-2 may not detect all infected individuals. HIV antibodies may be undetectable in some stages of the infection and in some clinical conditions. The performance of this assay has not been established for populations of infants or children. Assayed by Chemiluminescence Microparticle Immunoassay on the Siemens Advia Centaur CP. Values obtained with different methods or kits cannot be used interchangeably.The diagnostic specificity of the ADVIA Centaur 1/O/2 Enhanced assay in the low risk population was 99.90% (6052/6058) with a 95% confidence interval of 99.78 to 99.96%. 20 Therapeutic target for the treatment of diabetes Mellitus patients is <7% HBA1C, and in selective patients <6.0%.Please refer to [place] [employer] Diabetic care guidelines for further information. 21 YES 22 Test Performed by: [address] [address] Manager Online: Igor Salazar III, M.D. 23 * MALES: < 5.0 MIU/ML NON FEMALES < 5.0 MIU/ML APPROX GESTATIONAL AGE APPROX HCG RANGE 0-1 WEEK < 5.0-50 1-2 WEEKS 50-500 2-3 WEEKS 100-5000 3-4 WEEKS 500-10,000 1-2 MONTHS 10,000-200,000 2-3 MONTHS 15,000-100,000 PLEASE NOTE: The intended use of this assay is the quantitative determination of HCG in human serum or plasma for the early detection of . These assays should not be used to diagnose any condition unrelated to . If an HCG level is inconsistent with, or unsupported by, clinical evidence, results should be confirmed by an alternate HCG method. . 24 ---- RUN DATE: 05/05/11 [facility] NMI LIVE PAGE 1 RUN TIME: 1228 Specimen Inquiry RUN USER: INTERFACE -- Name: JIM MULLER Derrick#: [id number] Status: REG REF Re05/03/11 Age/Sex: 30/F Unit#: [id number] Location: [facility] : 80 -- Specimen: [id number] SOUT Spec Date:05/03/11-[address]: Jen chavez CNP Spec Type: CYTOLOGY Received:05/05/11-0846 Copies to: SOURCE ECTOCERVICAL/ENDOCERVICAL Thin Prep with Reflex HPV Test PATIENT INFORMATION ACTUAL COLLECTION DATE: 05/03/11 LAST MENSTRUAL PERIOD: 04/13/11 PATIENT HISTORY: Prior 03/2010 ADEQUACY OF SPECIMEN Satisfactory for evaluation * Transformation zone component identified * DIAGNOSIS NEGATIVE FOR INTRAEPITHELIAL LESION OR MALIGNANCY * This Pap test was evaluated with the assistance of the ThinPrep Pap Test Imaging System. The Pap Smear is a screening test designed to aid in the detection of premalign ant and malignant conditions of the uterine cervix. It is not a diagnostic procedure a nd should not be used as the sole means of detecting cervical cancer. Both false- positiv e and false-negative reports do occur. Depending on your risk status, a Pap smear darren uld be obtained and evaluated every one to three years. Initial evaluation performed by Sameer RUIZ([facility]) 05/05/11 Final Interpretation electronically signed by: Sameer RUIZ([facility]) 05/05/11 1227 -- -- DEPARTMENT OF PATHOLOGY, [address] [place] [address] [facility] Permit #[id number] Santi Mckenzie M.D. Director Juan Luis Barth M.D. Freight Car Cleaner Dir amanuel -- Procedures Date CPT Code Description Status 08/03/2016 93625 Remove Intrauterine Device Completed 12/07/2015 36648 Insert Intrauterine Device Completed 10/11/2015 96703 Obstetric Care Routine Completed 09/04/2015 73196 Echography Uterus Limited Completed 07/07/2015 79484 Injection Intramuscular Or Subcutaneous Completed 05/22/2015 15127 Echography Uterus Complete Completed 03/09/2015 58257 OB Ultrasound First Trimester Completed 11/25/2012 30313 Obstetric Care Routine Completed 07/27/2012 92123 Echography Uterus Limited Completed 07/11/2012 77586 Echography Uterus Complete Completed 04/12/2012 68261 OB Ultrasound First Trimester Completed 08/29/2011 08005 Echography Transvaginal Completed 03/06/2008 Colonoscopy Completed Encounters Type Date Location Provider CPT E/M Dx Office Visit 10/26/2017 1:00p [place] [address] N92.6 Office Visit 02/21/2017 2:00p [place] [address] N94.810 Office Visit 02/07/2017 8:00a [place] [address] Z01.419 Office Visit 01/07/2016 3:30p [place] [address] Z30.431 Office Visit 10/16/2015 10:30a [place] [address] K60.2 Office Visit 12/04/2014 11:00a [place] [address] N76.89 Office Visit 11/06/2014 8:00a [place] [address] V72.31 V76.2 Office Visit 08/06/2014 9:30a [place] [address] 626.2 Office Visit 05/05/2014 9:00a [facility] Milli Chadwick, FRONT OFFICE ATTENDANT 72763 626.2 Office Visit 10/15/2013 9:40a [facility] Office Micaela Payal, KEVIN 31241 V72.31 V25.40 V76.2 Office Visit 08/29/2011 1:20p [facility] Office SILVINA Iniguez 80964 626.8 Office Visit 08/15/2011 8:20a [facility] Office SILVINA Iniguez 83270 626.8 V78.0 Office Visit 05/03/2011 2:40p [facility] Office ORTIZ IniguezC 85023 V72.31 V76.2 Plan of Care 08/29/2011 - ORTIZ IniguezC626.8 Menstruation & Other Abnormal Bleeding Disorders OtherNew Medication:Beyaz 0.5 /1/0.5-35 mg-mcgFollow up:r/v 4 months or prn
[2017-11-05 10:09] LABS: ABS Basophils 0 10^3/ul (0-0.2); ABS Eosinophils 0.1 10^3/ul (0-0.6); ABS Lymphocytes 1.2 10^3/ul (1.0-4.8); ABS Monocytes 0.3 10^3/ul (0-0.8); ABS Neutrophils 4.6 10^3/ul (1.5-7.7); ABS Nucleated RBC 0 10^3/ul; Eosinophil % 1.2 % (0-6); Hematocrit 40 % (35-47); Hemoglobin 13.6 g/dl (12.0-16.0); Lymphocyte % 18.9 % (25-47); Mean Corpuscular HGB Conc 34 g/dl (31-36); Mean Corpuscular Hemoglobin 31 pg (27-31); Mean Corpuscular Volume 90 fL (80-97); Mean Platelet Volume 9.4 um3 (7.4-10.4); Nucleated Red Blood Cells % 0; Platelet Count 234 10^3/ul (150-450); Red Blood Count 4.42 10^6/ul (4.00-5.40); Red Cell Distribution Width 12 % (10.5-15); White Blood Count 6.2 10^3/ul (3.5-10.8)
[2017-11-05 10:27] LABS: EGFR Non-African American 89.7 (>60)
--- NOTE | 2017-11-05 10:31 | ED ---
Abdominal Pain/Female - HPI Summary HPI Summary: A 37 y/o female presents to ED c/o diffuse abdominal pain radiating around her side to her lower back. Currently, the patient is still experiencing diffuse abdominal pain and discomfort reaching 7/10 in severity, with it being at its worse, 7-8/10. She still is experiencing diarrhea, nausea and dehydration. In the ED room, the patient has a pulse of 74 BPM, O2 saturation of 99% and blood pressure of 102/55. As per triage, "Pt c/o bloating, abd pain, nausea, diarrhea , and fatigue for a few days". According to the patient, she has been experiencing diffuse abdominal pain since Monday night (10/31/2017) coupled with bloating and discomfort. She noted that the pain was after the end of her menstrual cycle so she disregarded the symptoms. However, on Monday night she was in severe discomfort pain as she couldn't change any positions and could not sleep. Additionally, she experienced nausea and diarrhea. On , the pain shifted to the lower portion of her abdomen and vaginal/hip area. Denies any fever, chills, vaginal discharge, pain with urination, or hematuria. She noted that sometime last week she had a blood in her stool, as she saw bright red blood when she wiped her bottom, this AM when she had a BM there was no blood, but it was loose. She further noted that she saw her OBGYN physician who scheduled her for a Pelvic US for her menstrual irregularities and cramps in December. PMHx of IBS (has become better over the years, but she has been experiencing more irritation and lack of tolerance to certain foods for the past couple months), denies any abdominal surgeries. Currently on a vitamin and has been breast feeding. Has several allergies. - History of Current Complaint Chief Complaint: EDAbdPain Stated Complaint: ABD PAIN Time Seen by Provider: 11/05/17 10:06 Hx Obtained From: Patient Hx Last Menstrual Period: 09/30/17 Onset/Duration: Sudden Onset, Lasting Days, Still Present Timing: Constant Severity Initially: Moderate Severity Currently: Moderate Pain Intensity: 7 Pain Scale Used: 0-10 Numeric Location: Diffuse Radiates: Yes Radiates to: Back - Lower Character: Cramping Aggravating Factor(s): Nothing Alleviating Factor(s): Nothing Associated Signs and Symptoms: Positive: Back Pain - Lower, Blood in Stool - 1 time when she wiped her bottom last week., Nausea, Diarrhea. Negative: Fever, Vaginal Discharge Allergies/Adverse Reactions: Allergies Allergy/AdvReac Type Severity Reaction Status Date / Time clarithromycin [From Biaxin] Allergy Severe Vomiting Verified 11/05/17 09:47 amoxicillin Allergy Rash Verified 11/05/17 09:47 Dairy Allergy Mild GI Upset Uncoded 11/05/17 09:47 eggs Allergy Mild GI Upset Uncoded 11/05/17 09:47 Gluten Allergy Mild GI Upset Uncoded 11/05/17 09:47 PMH/Surg Hx/FS Hx/Imm Hx Endocrine/Hematology History: Denies: Hx Diabetes, Hx Thyroid Disease Cardiovascular History: Denies: Hx Hypertension Respiratory History: Denies: Hx Asthma, Hx Chronic Obstructive Pulmonary Disease (COPD) GI History: Denies: Hx Ulcer History: Reports: Other Problems/Disorders - vulvar vestibulitis Psychiatric History: Reports: Hx Anxiety - Surgical History Surgery Procedure, Year, and Place: As per patient, no prior surgeries noted. Infectious Disease History: No Infectious Disease History: Denies: Hx Clostridium Difficile, Hx Hepatitis, Hx Human Immunodeficiency Virus (HIV), Hx of Known/Suspected MRSA, Hx Shingles, Hx Tuberculosis, Hx Known/ Suspected VRE, Hx Known/Suspected VRSA, History Other Infectious Disease, Traveled Outside the [place] in Last 30 Days - Family History Known Family History: Positive: Diabetes, Other - fibromyalgia - Social History Alcohol Use: None Substance Use Type: Reports: None Smoking Status (MU): Never Smoked Tobacco Have You Smoked in the Last Year: No Review of Systems Negative: Fever, Chills Positive: Abdominal Pain, Diarrhea, Nausea Negative: discharge, hematuria, pain Positive: Other - POSITIVE: Lower back pain All Other Systems Reviewed And Are Negative: Yes Physical Exam - Summary Physical Exam Summary: General: well-appearing, no acute pain distress Skin: warm, color reflects adequate perfusion, dry Head: normal Eyes: EOMI, BRANDON ENT: normal Neck: supple, nontender Respiratory: CTA, breath sounds present Cardiovascular: RRR Abdomen: soft, nontender Bowel: present, positive bowel sounds, mild diffuse tenderness with no rebound in whole abdomen. Musculoskeletal: normal, strength/ROM intact Neurological: sensory/motor intact, A&O x3 Psychological: affect/mood appropriate Triage Information Reviewed: Yes Vital Signs On Initial Exam: Initial Vitals Temp Pulse Resp BP Pulse Ox 98.4 F 83 16 101/45 100 11/05/17 09:44 11/05/17 09:44 18 09:44 18 09:44 11/05/17 09:44 Vital Signs Reviewed: Yes Diagnostics - Vital Signs Vital Signs Temp Pulse Resp BP Pulse Ox 11/05/17 10:12 65 99 11/05/17 10:10 65 102/55 99 11/05/17 09:44 98.4 F 83 16 101/45 100 - Laboratory Lab Results: Lab Results 11/05/17 Range/Units 10:02 WBC 6.2 (3.5-10.8) 10^3/ul RBC 4.42 (4.00-5.40) 10^6/ul Hgb 13.6 (12.0-16.0) g/dl Hct 40 (35-47) % MCV 90 (80-97) fL MCH 31 (27-31) pg MCHC 34 (31-36) g/dl RDW 12 (10.5-15) % Plt Count 234 (150-450) 10^3/ul MPV 9.4 (7.4-10.4) um3 Neut % (Auto) 74.0 (38-83) % Lymph % (Auto) 18.9 L (25-47) % Posey % (Auto) 5.4 (0-7) % Eos % (Auto) 1.2 (0-6) % Baso % (Auto) 0.5 (0-2) % Absolute Neuts (auto) 4.6 (1.5-7.7) 10^3/ul Absolute Lymphs (auto) 1.2 (1.0-4.8) 10^3/ul Absolute Monos (auto) 0.3 (0-0.8) 10^3/ul Absolute Eos (auto) 0.1 (0-0.6) 10^3/ul Absolute Basos (auto) 0 (0-0.2) 10^3/ul Absolute Nucleated RBC 0 10^3/ul Nucleated RBC % 0 Result Diagrams: 11/05/17 10:02 11/05/17 10:02 Lab Statement: Any lab studies that have been ordered have been reviewed, and results considered in the medical decision making process. - CT CT A/P CT Interpretation Completed By: Radiologist - 1. No CT evidence of acute inflammatory change of the gastrointestinal tract including a normal-appearing appendix. 2. The urinary bladder measures an approximate volume of 753 mL. Please correlate to signs or symptoms of neurogenic bladder and/or bladder outlet obstruction. 3. Left ovarian follicle better characterized on the same day pelvic ultrasound. ED PHYSICIAN REVIEWED THIS RADIOLOGY REPORT. - Ultrasound No standard instances Ultrasound Interpretation Completed By: Radiologist - Pelvic US: Normal and age- appropriate pelvic ultrasound. ED physician reviewed this radiology report. Abdominal Pain Fem Course/Dx - Course Course Of Treatment: Medications reviewed. Allergies noted. DISCUSSED RESULTS WITH THE PATIENT. SENT HOME WITH STOOL SAMPLE KIT. F/U PMD/OBGYN; RETURN TO ED SOONER IF NEEDED. - Diagnoses Provider Diagnoses: Abdominal pain, Diarrhea Discharge - Sign-Out/Discharge Documenting (check all that apply): Patient Departure - DISCHARGE - Discharge Plan Condition: Stable Disposition: HOME Meds/Orders/Equipment: O&P: Giardia/Cryptospor Screen Location: None Selected Stool Culture Location: None Selected Fecal Lactoferrin (Stool WBC) Location: None Selected Patient Education Materials: Acute Diarrhea (ED), Acute Abdominal Pain (ED) Referrals: Jenny Drummond MD [Primary Care Provider] - Additional Instructions: FOLLOW UP WITH YOUR DOCTOR. GET RECHECKED FOR ANY WORSENING OF YOUR CONDITION; PAIN, FEVER, YOU FEEL ILL OR QUESTIONS OR CONCERNS. - Billing Disposition and Condition Condition: STABLE Disposition: Home - Attestation Statements Document Initiated by Scribe: Yes Documenting Tamiribmendoza: Nitin Thomas Provider For Whom Heriberto is Documenting (Include Credential): Bill Zhao MD Scribe Attestation: Nitin Vaz, scribed for Bill Zhao MD on 11/05/17 at 1814. Scribe Documentation Reviewed: Yes Provider Attestation: The documentation as recorded by the Nitin barajas accurately reflects the service I personally performed and the decisions made by me, Bill Zhao MD
[2017-11-05] MEDS ORDERED: NS 0.9% 1000 ML* 2,000 ML IV ONE (10:32)
[2017-11-05] MEDS ORDERED: Iohexol 300* (CONTRAST) 10 ML SDV IV ONE (11:17)
--- NOTE | 2017-11-05 11:39 | RAD ---
INDICATION: Pelvic pain COMPARISON: None. TECHNIQUE: Real-time transabdominal only ultrasound examination of the female pelvis including grayscale and Doppler color flow imaging. FINDINGS: Uterus: The uterus is normal in size and echogenicity measuring 7.1 x 4.6 x 5.2 cm. The endometrial stripe is smooth and uniform measuring 8 mm in thickness. Ovaries: The right and left ovary measure 3.8 x 1.9 x 2.6 cm and 4.6 x 2.0 x 3.3 cm, respectively. Normal arterial and venous waveforms are identified. Within the left ovary there is an anechoic and avascular structure measuring 2.2 cm in greatest dimension consistent with a normal ovarian follicle. There is no free fluid in the cul-de-sac. IMPRESSION: Normal and age-appropriate pelvic ultrasound.
[2017-11-05 11:42] LABS: Urine Appearance Clear; Urine Blood 1+ (Negative); Urine Color Colorless; Urine Ketones Negative (Negative); Urine Protein Negative (Negative); Urine Red Blood Cell Trace(0-2/hpf) (Absent); Urine Specific Gravity 1.002 (1.010-1.030); Urine Urobilinogen Negative (Negative); Urine White Blood Cell Absent (Absent)
--- NOTE | 2017-11-05 13:31 | RAD ---
CLINICAL HISTORY: Diffuse abdominal pain and diarrhea COMPARISON: Same day ultrasound of the pelvis that did not reveal any acute abnormalities TECHNIQUE: Contrast enhanced CT examination of the abdomen and pelvis from the lung bases through the initial tuberosities. The patient received 80 mL Omnipaque 300 intravenously prior to imaging.The patient received oral contrast as well prior to imaging. FINDINGS: VISUALIZED LUNG BASES: The visualized lung bases are grossly clear. There is no pleural effusion. ABDOMEN AND PELVIS: The liver, spleen, pancreas and adrenal glands are grossly normal in appearance. The gallbladder is normal. The kidneys are normal in appearance without focal mass, calcification or signs of hydronephrosis. The urinary bladder measures 9.3 x 7.2 cm in the axial plane and 13.9 cm in greatest cephalocaudal dimension yielding an approximate volume of 753 mL. The oral contrast has progressed as far as the descending colon. The small and large bowel are not distended. The patient's normal appendix is identified in the right lower quadrant with gas in the lumen measuring 4 mm in diameter (axial image 56 and sagittal image 53). There is no gross retroperitoneal or mesenteric lymphadenopathy. The uterus is retroverted. At the left adnexa there is a 1.8 cm fluid density structure that likely corresponds to the follicle better characterized on the same day pelvic ultrasound. The abdominal aorta and iliac arteries are normal in course and diameter. There are no sinister bone lesions. IMPRESSION: 1. No CT evidence of acute inflammatory change of the gastrointestinal tract including a normal-appearing appendix. 2. The urinary bladder measures an approximate volume of 753 mL. Please correlate to signs or symptoms of neurogenic bladder and/or bladder outlet obstruction. 3. Left ovarian follicle better characterized on the same day pelvic ultrasound.
[2017-11-05 15:41] VITALS: BP 106/59
== END 2017-11-05 15:39 | disposition home or self-care (01) ==
LOC: ED 09:42
DX: R10.9 Unspecified abdominal pain (principal); R19.7 Diarrhea, unspecified; N85.4 Malposition of uterus; K58.9 Irritable bowel syndrome, unspecified; Z88.3 Allergy status to other anti-infective agents; Z91.012 Allergy to eggs; Z91.011 Allergy to milk products
CPT/HCPCS: 36415; 74177; 76856; 80053; 81003; 81015; 83605; 83690; 84702; 85025; 86140; 96360; 96361; 99282; Q9967

== ENCOUNTER → 2018-11-16 05:45 | Day surgery (SDC) | payer BC ==
[~2018-11-16 05:45] MED LIST: Buffered Lidocaine 1% SYRIN* 1 ML/SYRINGE INTRADERM ONE; Dexamethasone TAB* 4 MG ONE; Dexamethasone TAB* 4 MG PO ONE; DiMENhydriNATE IV* 50 MG/ML VIAL IV PUSH PRN; Famotidine IV* 10 MG/ML 2 ML (20 mg) IV ONE; Famotidine IV* 10 MG/ML 2 ML (20 mg) ONE; HYDROmorphone INJ1* 1 MG/ML SYRINGE IV PRN; KETAMINE HCL* 50 MG/ML 10 ML VIAL ONE; Ketorolac INJ* 30 MG/ML 1 ML VIAL ONE; Lactated Ringers 1000 ML Bag* 1,000 ML IV SCH; Lidocaine 2% PF * 5 ML VIAL ONE; Midazolam* 1 MG/ML 5 ML VIAL (5 MG) ONE; Naloxone* 0.4 MG/ML 1 ML VIAL IV PRN; Ondansetron ODT TAB* 4 MG ONE; Ondansetron ODT TAB* 4 MG PO ONE; PROCHLORPERAZINE INJ 5 MG/ML 2 ML VIAL IV PRN; PROCHLORPERAZINE INJ 5 MG/ML 2 ML VIAL ONE; Propofol* 10 MG/ML 20 ML BTL ONE; Scopolamine 1.5 mg* PATCH TRANSDERM PRN; Scopolamine PATCH Remove* 1 NOTE MISC PATCH OFF ONE; Silver Nitrate/Potassium Nitr* 1 EA STICK ONE; fentaNYL* 50 MCG/ML 2 ML VIAL (100 MCG VIAL) IV PRN; fentaNYL* 50 MCG/ML 2 ML VIAL (100 MCG VIAL) ONE; oxyCODONE/Acetamin 5/325 MG* TAB PO PRN
[2018-11-16 09:21] VITALS: BP 85/49
--- NOTE | 2018-11-16 13:25 | OP ---
DATE OF OPERATION: 11/16/18 - [facility] DATE OF : 80 SURGEON: Marciano Guillaume MD ANESTHESIOLOGIST: Dr. Johnson. ANESTHESIA: General endotracheal anesthesia. PRE-OP DIAGNOSES: Menorrhagia, endometrial polyp. POST-OP DIAGNOSES: Menorrhagia, endometrial polyp. OPERATIVE PROCEDURES: Dilation, hysteroscopy, MyoSure polypectomy, curettage. ESTIMATED BLOOD LOSS: Minimal, 20 cc. DRAINS: None. FLUID DEFICIT: On MyoSure is 100 cc. FINDINGS: Small retroverted uterus, 2 endometrial polyps, otherwise normal- appearing endometrium. Both tubal ostia were visualized. The uterus sounded to 8. COMPLICATIONS: None. COUNTS: Sponge, lap, and needle count were correct x2. CONDITION: The patient was brought to the recovery room awake and in stable condition. DESCRIPTION OF PROCEDURE: The patient was brought to the operating room. When general anesthesia was found to be adequate, the patient was prepped and draped in the usual sterile fashion in the dorsal lithotomy position. Time-out was performed. Exam under anesthesia was performed. Weighted speculum was placed in the vagina. The anterior lip of the cervix was grasped with the single- tooth tenaculum and the cervix was gently and easily dilated with the graduated Cope dilators. The MyoSure was introduced. Two polypoid appearing masses were seen protruding through the endometrium. Otherwise, the endometrium appeared normal. The MyoSure LITE was used to remove both polyps in their entirety. The curettage was then performed and the specimen was sent altogether as endometrial polyps and endometrial curettings. The single toothed tenaculum was removed from the anterior lip of the cervix. Excellent hemostasis was noted. Sponge count was correct and the patient was brought to the recovery room awake and in stable condition. [id number]/[facility] #: [id number] MTDD
== END | disposition home or self-care (01) ==
LOC: OR 05:45
PROVIDERS: ATTEND Obstetrics & Gynecology
DX: N92.1 Excessive and frequent menstruation with irregular cycle (principal); N84.0 Polyp of corpus uteri
CPT/HCPCS: 81025; 88305; A9270-GY; J0780; J1885; J2250; J2704; J3010; J8540